=== PATIENT | male | born 1995 | race Two or more races ===

== ENCOUNTER 2016-09-17 22:53 | Emergency (ER) | payer OTHER ==
[2016-09-17 23:32] VITALS: BP 128/69
== END 2016-09-18 00:52 | disposition left against medical advice (07) ==
LOC: ER 22:53
DX: Z53.21 Procedure and treatment not carried out due to patient leaving prior to being seen by health care provider (principal)

== ENCOUNTER 2017-02-25 16:33 | Emergency (ER) | payer OTHER ==
[2017-02-25] MEDS ORDERED: DEXAMETHASONE SOD PHOS INJ 10 MG/1 ML VIAL IM ONE (17:50)
[2017-02-25] MEDS ORDERED: CEFTRIAXONE 1 GM/D5W RTU 1 GM/50 ML RTUPB IV ONE (17:50)
[2017-02-25] MEDS ORDERED: IPRATROPIUM/ALBUTEROL 0.5-2.5 MG/3 ML AMPUL NEB ONE (17:50)
--- NOTE | 2017-02-25 17:54 | ER Document Report ---
ED Respiratory Problem - General Chief Complaint: Congestion Stated Complaint: CONGESTION Time Seen by Provider: 02/25/17 17:48 Mode of Arrival: Ambulatory Information source: Patient Notes: Patient is a 22-year-old male comes to emergency room complaining of two-week onset of congestion runny nose and cough. Patient states she was here approximately 3 weeks ago and had an allergic reaction to amoxicillin. Plus he been complaining of upper respiratory symptoms but because of the allergic reaction he was not treated for it. He states that in the past several days he has had a temp of 201.4 he has a inspiratory expiratory wheezing going on and he has runny nose congestion with sinus tenderness. Patient continues to smoke approximately half a pack of cigarettes a day as well. TRAVEL OUTSIDE OF THE [place] IN LAST 30 DAYS: No - HPI Patient complains to provider of: Asthma, Cough, Short of breath Onset: Last week Duration: Worse/persistent Initiating Event: URI Severity: Moderate Pain Level: 3 Chest pain/discomfort: Worse with deep breaths Cough: Nonproductive Sputum amount: None At home treatment: Bronchodilators Associated symptoms: Chills, Congestion, Cough, Difficulty breathing, Fever, Headache, Short of breath Worsened by: Activity Similar symptoms previously: Yes Recently seen / treated by doctor: Yes - Related Data Allergies/Adverse Reactions: acetaminophen [From Sudafed PE Cold and Cough] Allergy (Verified 02/25/17 16:35) dextromethorphan [From Sudafed PE Cold and Cough] Allergy (Verified 02/25/17 16: 35) guaifenesin [From Sudafed PE Cold and Cough] Allergy (Verified 02/25/17 16:35) phenylephrine [From Sudafed PE Cold and Cough] Allergy (Verified 02/25/17 16:35) pseudoephedrine HCl [From Sudafed] Allergy (Verified 02/25/17 16:35) Hypertension Penicillins Adverse Reaction (Verified 02/25/17 16:35) Past Medical History - General Information source: Patient - Social History Smoking Status: Current Every Day Smoker Cigarette use (# per day): Yes - Half-pack a day Chew tobacco use (# tins/day): No Smoking Education Provided: Yes Frequency of alcohol use: None Drug Abuse: None Lives with: Family Family History: Reviewed & Not Pertinent Pulmonary Medical History: Reports: Hx Asthma, Hx Bronchitis Renal/ Medical History: Denies: Hx Peritoneal Dialysis Psychiatric Medical History: Reports: Hx Attention Deficit Hyperactivity Disorder, Hx Bipolar Disorder Review of Systems - Review of Systems Constitutional: Fever, Malaise, Weakness EENT: Nose congestion, Nose discharge, Sinus pressure, Sinus discharge Cardiovascular: No symptoms reported Respiratory: Cough, Short of breath, Wheezing Gastrointestinal: No symptoms reported Genitourinary: No symptoms reported Male Genitourinary: No symptoms reported Musculoskeletal: No symptoms reported Skin: No symptoms reported Hematologic/Lymphatic: No symptoms reported Neurological/Psychological: No symptoms reported -: Yes All other systems reviewed and negative Physical Exam - Vital signs Vitals: Temp Pulse Resp BP Pulse Ox 98.8 F 55 L 16 126/56 H 98 02/25/17 16:43 02/25/17 16:43 02/25/17 16:43 02/25/17 16:43 02/25/17 16:43 Interpretation: Normal - General General appearance: Alert In distress: None - HEENT Head: Normocephalic, Atraumatic Ears: Normal External canal: Normal Tympanic membrane: Bulging Sinus: Abnormal, Frontal, Maxillary, Swelling, Tenderness Nasal: Purulent discharge Mouth/Lips: Normal Mucous membranes: Moist Pharynx: Normal Neck: Normal - Respiratory Respiratory status: No respiratory distress Chest status: Pain with cough, Pain with deep breathing Breath sounds: Decreased air movement, Nonproductive cough, Rhonchi, Wheezing, Other - Examination patient's lungs show he has bilateral breath sounds breath sounds are moderately decreased throughout there is respiratory and expiratory wheeze noted. There is faint rhonchi in the upper airway also noted. - Cardiovascular Rhythm: Regular Heart sounds: Normal auscultation Murmur: No - Neurological Neuro grossly intact: Yes Cognition: Normal Orientation: AAOx4 Dow Coma Scale Eye Opening: Spontaneous Carli Coma Scale Verbal: Oriented Carli Coma Scale Motor: Obeys Commands Dow Coma Scale Total: 15 Speech: Normal Course - Vital Signs Vital signs: Temp Pulse Resp BP Pulse Ox 98.8 F 55 L 16 126/56 H 98 02/25/17 16:43 02/25/17 16:43 02/25/17 16:43 02/25/17 16:43 02/25/17 16:43 - Diagnostic Test Radiology reviewed: Pending, Reports reviewed - Plain film of the chest shows no acute cardiopulmonary problems. - Transfer of Care Notes: 02/25/17 18:41 I have informed patient of the workup we are going to do including an x-ray with a shot of Rocephin a Decadron and neb treatment and then would put him on outpatient medications for the sinus condition as well as the bronchitis. That was if his chest x-ray showed no pneumonia. While I was sitting waiting for results to come back nurse approached me and said patient wants to leave the only be treated with oral medications. At this point following doing that the chest x-ray is back and it is normal so we will put him on Zithromax a steroid taper and in an inhaler or neb treatments for home. Discharge - Discharge Clinical Impression: Acute asthmatic bronchitis Acute sinusitis Qualifiers: Sinusitis location: maxillary Recurrence: non-recurrent Qualified Code(s): J01.00 - Acute maxillary sinusitis, unspecified Condition: Good Disposition: HOME, SELF-CARE Instructions: Bronchitis With Bronchospasm (Wheezing) ([facility]), Sinusitis ([facility]) Additional Instructions: Home rest. Cut back on smoking as much as possible. Use nasal saline 3-4 times a day to keep the nose moist and secretions thin. Highly recommend getting a Claritin [id number] for the antihistamine to help stopping the sneeze and the congestion. Take all your antibiotics. Use your nebulizer as directed. Return to ER if you have any concerns or problems. Chest x-ray was negative for an acute infiltrate/pneumonia. Prescriptions: Albuterol Sulfate [Ventolin 0.083% Neb 2.5 mg/3 ml Ampul] 1 vial NEB Q4 #60 vial Azithromycin [Zithromax 250 mg Tablet] 250 mg PO ASDIR PRN #6 tablet PRN Reason: Methylprednisolone [Medrol Dosepack (4 mg/Tab) 21 Tab/Dosepak] 4 mg PO ASDIR PRN #21 tab.ds.pk PRN Reason: Forms: Smoking Cessation Education
--- NOTE | 2017-02-25 18:24 | RADIOLOGY REPORT (SQ) ---
EXAM DESCRIPTION: CHEST PA/LAT COMPLETED DATE/TIME: 02/25/2017 6:08 pm REASON FOR STUDY: cough wheeze COMPARISON: 01/28/2017 EXAM PARAMETERS: NUMBER OF VIEWS: two views TECHNIQUE: Digital Frontal and Lateral radiographic views of the chest acquired. RADIATION DOSE: NA LIMITATIONS: none FINDINGS: LUNGS AND PLEURA: No opacities, masses or pneumothorax. No pleural effusion. MEDIASTINUM AND HILAR STRUCTURES: No masses or contour abnormalities. HEART AND VASCULAR STRUCTURES: Heart normal size. No evidence for failure. BONES: No acute findings. HARDWARE: None in the chest. OTHER: No other significant finding. IMPRESSION: NO SIGNIFICANT RADIOGRAPHIC FINDING IN THE CHEST. TECHNICAL DOCUMENTATION: JOB ID: [id number] [employer]- All Rights Reserved
[2017-02-25 18:59] VITALS: BP 143/67
== END 2017-02-25 18:59 | disposition home or self-care (01) ==
LOC: ER 16:33
DX: J45.909 Unspecified asthma, uncomplicated (principal); J01.00 Acute maxillary sinusitis, unspecified; R09.81 Nasal congestion; R09.89 Other specified symptoms and signs involving the circulatory and respiratory systems; R05 Cough; R50.9 Fever, unspecified; R51 Headache; F17.210 Nicotine dependence, cigarettes, uncomplicated
CPT/HCPCS: 99283; 96372; 71020; J1100

== ENCOUNTER 2017-08-07 07:52 | Emergency (ER) | payer OTHER ==
[2017-08-07] MEDS ORDERED: ALBUTEROL SULFATE 0.083% NEB 2.5 MG/3 ML AMPUL NEB ONE (10:28)
[2017-08-07] MEDS ORDERED: PREDNISONE 20 MG TABLET PO ONE (10:29)
--- NOTE | 2017-08-07 10:29 | ER Document Report ---
ED General - General Chief Complaint: Vomiting/Diarrhea Stated Complaint: COUGH, VOMITING Time Seen by Provider: 08/07/17 09:12 Notes: 22-year-old male to emergency department chief complaint of shortness of breath , vomiting, diarrhea. Patient states that he has a history of asthma. Has been taking some prednisone over the last couple of days but has not helped. Using albuterol but not helping. Started having diarrhea and vomiting a few days ago. Cannot seem to stop the diarrhea. Crampy abdominal pain. No fever, chills or sweats. Coughing is getting worse. Other sick contacts in the home as well with some vomiting and diarrhea. TRAVEL OUTSIDE OF THE [place] IN LAST 30 DAYS: No - HPI Onset: Last week - Related Data Allergies/Adverse Reactions: acetaminophen [From Sudafed PE Cold and Cough] Allergy (Verified 08/07/17 07:53) dextromethorphan [From Sudafed PE Cold and Cough] Allergy (Verified 08/07/17 07: 53) guaifenesin [From Sudafed PE Cold and Cough] Allergy (Verified 08/07/17 07:53) phenylephrine [From Sudafed PE Cold and Cough] Allergy (Verified 08/07/17 07:53) pseudoephedrine HCl [From Sudafed] Allergy (Verified 08/07/17 07:53) Hypertension Penicillins Adverse Reaction (Verified 08/07/17 07:53) Home Medications: albuterol Past Medical History - General Information source: Patient - Social History Smoking Status: Current Every Day Smoker Cigarette use (# per day): Yes Frequency of alcohol use: None Drug Abuse: None Lives with: Family Family History: Reviewed & Not Pertinent Patient has suicidal ideation: No Patient has homicidal ideation: No - Past Medical History Cardiac Medical History: Reports: Hx Hypertension Pulmonary Medical History: Reports: Hx Asthma, Hx Bronchitis Renal/ Medical History: Denies: Hx Peritoneal Dialysis Psychiatric Medical History: Reports: Hx Attention Deficit Hyperactivity Disorder, Hx Bipolar Disorder Review of Systems - Review of Systems Constitutional: No symptoms reported EENT: No symptoms reported Cardiovascular: No symptoms reported Respiratory: Cough, Short of breath, Wheezing Gastrointestinal: Abdominal pain, Diarrhea, Nausea, Vomiting Genitourinary: No symptoms reported Male Genitourinary: No symptoms reported Musculoskeletal: No symptoms reported Skin: No symptoms reported Hematologic/Lymphatic: No symptoms reported Neurological/Psychological: No symptoms reported Physical Exam - Vital signs Vitals: Temp Pulse Resp BP Pulse Ox 98.3 F 50 L 16 151/86 H 99 08/07/17 07:58 08/07/17 07:58 08/07/17 07:58 08/07/17 07:58 08/07/17 07:58 Interpretation: Normal - General General appearance: Appears well, Alert - HEENT Head: Normocephalic, Atraumatic Eyes: Normal Pupils: PERRL - Respiratory Respiratory status: No respiratory distress Chest status: Nontender Breath sounds: Nonproductive cough, Wheezing Chest palpation: Normal - Cardiovascular Rhythm: Regular Heart sounds: Normal auscultation Murmur: No - Abdominal Inspection: Normal Distension: No distension Bowel sounds: Hyperactive Tenderness: Tender. No: McBurney's point, Williamson's sign, Guarding, Rebound Organomegaly: No organomegaly - Back Back: Normal, Nontender - Extremities General upper extremity: Normal inspection, Nontender, Normal color, Normal ROM , Normal temperature General lower extremity: Normal inspection, Nontender, Normal color, Normal ROM , Normal temperature, Normal weight bearing. No: Willi's sign - Neurological Neuro grossly intact: Yes Cognition: Normal Orientation: AAOx4 Carli Coma Scale Eye Opening: Spontaneous Carli Coma Scale Verbal: Oriented Carli Coma Scale Motor: Obeys Commands [place] Coma Scale Total: 15 Speech: Normal Motor strength normal: LUE, RUE, LLE, RLE Sensory: Normal - Psychological Associated symptoms: Normal affect, Normal mood - Skin Skin Temperature: Warm Skin Moisture: Dry Skin Color: Normal Course - Re-evaluation Re-evalutation: 08/07/17 12:15 Laboratory 08/07/17 10:15 Urine Color YELLOW Urine Appearance CLEAR Urine pH 6.0 Ur Specific [place] 1.008 Urine Protein NEGATIVE Urine Glucose (UA) NEGATIVE Urine Ketones NEGATIVE Urine Blood SMALL H Urine Nitrite NEGATIVE Urine Bilirubin NEGATIVE Urine Urobilinogen NEGATIVE Ur Leukocyte Esterase NEGATIVE Urine WBC (Auto) 0 Urine RBC (Auto) 1 Squamous Epi Cells Auto <1 Urine Mucus (Auto) RARE Urine Ascorbic Acid NEGATIVE Chest X-Ray 08/07/17 10:28 IMPRESSION: NO ACUTE RADIOGRAPHIC FINDING IN THE CHEST. Chest x-ray unremarkable. No signs of dehydration based on urinalysis of specific gravity. Currently at this time will treat symptomatically for his diarrhea and nausea. Will give some Zofran. Advised taking Imodium . Prednisone albuterol for cough and wheeze. Advised to follow-up with his regular doctor. Antibiotics not warranted in my opinion at this time. Strict instructions were given if the patient develops any black bright red blood in the stool, dark tarry stools, worsening abdominal pain, worsening shortness of breath or any other concerns he should return immediately. Patient is comfortable with this plan. Will discharge at this time in stable condition - Vital Signs Vital signs: Temp Pulse Resp BP Pulse Ox 97.9 F 63 16 123/93 H 100 08/07/17 10:17 08/07/17 10:17 08/07/17 07:58 08/07/17 10:17 08/07/17 10:17 - Laboratory Laboratory results interpreted by me: 08/07/17 10:15 Urine Blood SMALL H Discharge - Discharge Clinical Impression: Bronchitis, Gastroenteritis Condition: Good Disposition: HOME, SELF-CARE Instructions: Gastroenteritis (adult) ([facility]), Bronchitis ([facility]) Prescriptions: Albuterol Sulfate [Proair HFA Inhalation Aerosol 8.5 gm MDI] 2 puff IH Q4 PRN # 1 mdi PRN Reason: Prednisone 60 mg PO DAILY 4 Days #12 tablet Forms: Return to Work
--- NOTE | 2017-08-07 11:16 | RADIOLOGY REPORT (SQ) ---
EXAM DESCRIPTION: CHEST 2 VIEWS COMPLETED DATE/TIME: 08/07/2017 10:56 am REASON FOR STUDY: sob COMPARISON: 02/25/2017 EXAM PARAMETERS: NUMBER OF VIEWS: two views TECHNIQUE: Digital Frontal and Lateral radiographic views of the chest acquired. RADIATION DOSE: NA LIMITATIONS: none FINDINGS: LUNGS AND PLEURA: No opacities, masses or pneumothorax. No pleural effusion. MEDIASTINUM AND HILAR STRUCTURES: No masses or contour abnormalities. HEART AND VASCULAR STRUCTURES: Heart normal size. No evidence for failure. BONES: No acute findings. HARDWARE: None in the chest. OTHER: No other significant finding. IMPRESSION: NO ACUTE RADIOGRAPHIC FINDING IN THE CHEST. TECHNICAL DOCUMENTATION: JOB ID: [id number] [employer]- All Rights Reserved Reading location - IP/workstation name: [email or web address]
[2017-08-07 11:56] LABS: APPEARANCE,URINE CLEAR; BILIRUBIN,URINE NEGATIVE (NEGATIVE); COLOR,URINE YELLOW; GLUCOSE, URINE NEGATIVE (NEGATIVE); KETONES,URINE NEGATIVE (NEGATIVE); LEUKOCYTE ESTERASE,URINE NEGATIVE (NEGATIVE); NITRITE,URINE NEGATIVE (NEGATIVE); PROTEIN,URINE NEGATIVE (NEGATIVE); URINE SPECIFIC GRAVITY 1.008; UROBILINOGEN,URINE NEGATIVE mg/dL (<2.0)
[2017-08-07] MEDS ORDERED: LOPERAMIDE HCL 2 MG CAPSULE PO ONE (12:20)
[2017-08-07 12:41] VITALS: BP 147/74
== END 2017-08-07 12:41 | disposition home or self-care (01) ==
LOC: ER 07:52
DX: J45.909 Unspecified asthma, uncomplicated (principal); K52.9 Noninfective gastroenteritis and colitis, unspecified; R11.10 Vomiting, unspecified; R05 Cough; R06.02 Shortness of breath; R10.9 Unspecified abdominal pain; F17.210 Nicotine dependence, cigarettes, uncomplicated; I10 Essential (primary) hypertension
CPT/HCPCS: 94640; 99284; 81001; 71046; J7512